=== PATIENT | male | born 1970 | race Caucasian/White ===

== ENCOUNTER 2019-05-17 06:44 | Emergency (ER) | payer BC, SELFPAY ==
--- NOTE | 2019-05-17 06:55 | DI.RAD.S_ITS ---
PROCEDURE: XR CHEST 2V INDICATIONS: SOB TECHNIQUE: 2 views of the chest were acquired. COMPARISON: None. FINDINGS: Surgical changes and devices: None. Lungs and pleura: Minimal retrocardiac hazy opacity and bibasilar hazy opacity most compatible with atelectasis. No consolidation. No pleural effusions or pneumothorax. Mediastinum: Mediastinal contours are normal. Heart size is normal. Bones and chest wall: No suspicious bony abnormalities. Soft tissues appear unremarkable. IMPRESSION: No acute cardiopulmonary abnormality demonstrated. Dictated by: Manuel Ryder M.D. on 05/17/2019 at 7:46 Approved by: Manuel Ryder M.D. on 05/17/2019 at 7:47
--- NOTE | 2019-05-17 06:58 | ED.SOB ---
HPI - SOB/Dyspnea <Jp Sanchez DO - Last Filed: 05/17/19 23:21> General Chief Complaint: Shortness of Breath/Dyspnea Stated Complaint: difficulty breathing Time Seen by Provider: 05/17/19 06:48 Source: patient Mode of arrival: Ambulatory Limitations: no limitations History of Present Illness HPI Narrative: 48-year-old male nonsmoker with benign medical history presents with a chief complaint of gradually worsening shortness of breath nonproductive cough and fatigue for the past 3 or 4 days. He now feels dizzy, weak and lightheaded. He has had a very poor appetite but denies any nausea or vomiting. He feels like he has had a fever and complains of chills but has not measured it. He denies any abdominal pain diarrhea or constipation. He denies any dysuria, frequency or urgency. His symptoms started on knee does had a runny nose and a bit of a scratchy throat but things have worsened as stated over the past few days. He denies any sick contacts. MD Complaint: shortness of breath and cough Onset (ago): day(s) Severity: moderate Consistency/Duration: constant and progressively worsening Relieving factors: nothing Exacerbating factors: deep breaths Associated symptoms: fever, cough, nausea/vomiting and lightheadedness Treatment prior to arrival: none Related Data Home oxygen amount: none Allergies Allergy/AdvReac Type Severity Reaction Status Date / Time No Known Drug Allergies Allergy Verified 05/17/19 07:23 Review of Systems <Jp Sanchez DO - Last Filed: 05/17/19 23:21> Constitutional Constitutional: Denies chills, Denies fatigue, Denies fever(s), Denies frequent falls, Denies lethargy and Reports weakness Eyes Eyes: Denies change in vision, Denies eye discharge, Denies irritation and Denies loss of vision ENT Ears, Nose, Mouth, and Throat: Denies change in voice, Denies dizziness, Denies neck pain, Reports sore throat and Denies throat swelling Cardiovascular Cardiovascular: Denies chest pain, Denies irregular heart rhythm, Denies lightheadedness, Denies palpitations, Reports dyspnea, Denies dyspnea on exertion and Denies orthopnea Respiratory Respiratory: Reports cough, Reports dyspnea, Denies dyspnea on exertion and Reports wheezing Gastrointestinal Gastrointestinal: Denies abdominal pain, Denies change in bowel habits, Denies diarrhea, Denies nausea and Denies vomiting Genitourinary Genitourinary: Denies hematuria, Denies flank pain, Denies urinary incontinence and Denies urinary urgency Musculoskeletal Musculoskeletal: Denies back pain, Denies muscle weakness, Denies neck pain, Denies numbness and Denies tingling Integumentary/Breasts Skin/Breast: Denies pruritus, Denies erythema, Denies rash and Denies wounds Neurologic Neurologic: Denies behavioral changes, Denies confusion, Denies dizziness, Denies frequent falls, Denies loss of vision, Denies numbness, Denies tingling and Reports weakness Psychiatric Psychiatric: Denies anxiety, Denies behavioral changes, Denies confusion, Denies depression, Denies homicidal ideation and Denies suicidal ideation Endocrine Endocrine: Denies fatigue, Denies flushing and Denies palpitations Hematologic/Lymphatic Hematologic/Lymphatic: Denies easy bruising Allergic/Immunologic Allergic/Immunologic: Denies urticaria, Denies throat swelling and Reports wheezing PFSH <Jp Sanchez DO - Last Filed: 05/17/19 23:21> Social History Smoking Status: Current some day smoker Exam <Jp Sanchez DO - Last Filed: 05/17/19 23:21> Narrative Exam Narrative: GENERAL: [48] year old patient appears stated age. Well-nourished, well-developed patient, in mild distress. HEAD: Atraumatic. Normocephalic. EYES: Pupils equal round and reactive. Extraocular motions intact. No scleral icterus. No injection or drainage. ENT: Dry mucous membranes, clear postnasal drip with some pharyngeal erythema Nose without bleeding, purulent drainage. Throat without erythema, tonsillar hypertrophy or exudate. Airway patent. NECK: Trachea midline. Non tender CARDIOVASCULAR: Regular rate and rhythm without murmurs, gallops, or rubs. RESPIRATORY: Mild end expiratory wheeze GASTROINTESTINAL: Abdomen soft, non-tender, nondistended. EXTREMITIES: No edema or joint tenderness. BACK: Nontender without deformity or crepitance. No flank tenderness. NEURO: AOx3. SKIN: No rash or erythema of visible areas Initial Vital Signs Initial Vital Signs: Vital Signs Temperature 98.0 F 05/17/19 07:04 Pulse Rate 62 05/17/19 07:04 Respiratory Rate 18 05/17/19 07:04 Blood Pressure 185/106 H 05/17/19 07:04 Pulse Oximetry 100 05/17/19 07:04 <Altagracia Hines, - Last Filed: 05/17/19 10:32> Initial Vital Signs Initial Vital Signs: Vital Signs Temperature 98.0 F 05/17/19 07:04 Pulse Rate 62 05/17/19 07:04 Respiratory Rate 18 05/17/19 07:04 Blood Pressure 185/106 H 05/17/19 07:04 Pulse Oximetry 100 05/17/19 07:04 Course <Jp Sanchez, DO - Last Filed: 05/17/19 23:21> Course Course Narrative: signed out to Dr. Hines for final disposition Orders Ordered: Discontinued Medications Albuterol/Ipratropium (Duoneb) 3 ml INH NOW ONE Stop: 05/17/19 06:56 Last Admin: 05/17/19 07:15 Dose: 3 ml Documented by: ED Sodium Chloride (Normal Saline 0.9%) 1,000 mls @ 1,000 mls/hr IV BOLUS ONE Stop: 05/17/19 07:54 Last Infusion: 05/17/19 08:38 Dose: 0 mls/hr Documented by: Admin: 05/17/19 07:23 Dose: 1,000 mls/hr Documented by: ERLINDA Vital Signs Vital signs: Vital Signs - 8 hr 05/17/19 07:04 05/17/19 07:15 05/17/19 08:00 Temperature 98.0 F Pulse Rate 62 66 71 Pulse Rate [Orthostatic Lying] Pulse Rate [Orthostatic Sitting] Pulse Rate [Orthostatic Standing] Respiratory Rate 18 16 Blood Pressure 185/106 H Blood Pressure [Left Arm] 169/84 H Blood Pressure [Orthostatic Lying] Blood Pressure [Orthostatic Sitting] Blood Pressure [Orthostatic Standing] Pulse Oximetry 100 100 100 05/17/19 08:01 05/17/19 08:52 Temperature Pulse Rate 61 Pulse Rate [Orthostatic Lying] 65 Pulse Rate [Orthostatic Sitting] 65 Pulse Rate [Orthostatic Standing] 61 Respiratory Rate 14 Blood Pressure Blood Pressure [Left Arm] 163/85 H Blood Pressure [Orthostatic Lying] 169/84 H Blood Pressure [Orthostatic Sitting] 168/86 H Blood Pressure [Orthostatic Standing] 158/86 H Pulse Oximetry 100 <Altagracia Hines DO - Last Filed: 05/17/19 10:32> Orders Ordered: Discontinued Medications Albuterol/Ipratropium (Duoneb) 3 ml INH NOW ONE Stop: 05/17/19 06:56 Last Admin: 05/17/19 07:15 Dose: 3 ml Documented by: ED Sodium Chloride (Normal Saline 0.9%) 1,000 mls @ 1,000 mls/hr IV BOLUS ONE Stop: 05/17/19 07:54 Last Infusion: 05/17/19 08:38 Dose: 0 mls/hr Documented by: Admin: 05/17/19 07:23 Dose: 1,000 mls/hr Documented by: [email or web address] Vital Signs Vital signs: Vital Signs - 8 hr 05/17/19 07:04 05/17/19 07:15 05/17/19 08:00 Temperature 98.0 F Pulse Rate 62 66 71 Pulse Rate [Orthostatic Lying] Pulse Rate [Orthostatic Sitting] Pulse Rate [Orthostatic Standing] Respiratory Rate 18 16 Blood Pressure 185/106 H Blood Pressure [Left Arm] 169/84 H Blood Pressure [Orthostatic Lying] Blood Pressure [Orthostatic Sitting] Blood Pressure [Orthostatic Standing] Pulse Oximetry 100 100 100 05/17/19 08:01 05/17/19 08:52 Temperature Pulse Rate 61 Pulse Rate [Orthostatic Lying] 65 Pulse Rate [Orthostatic Sitting] 65 Pulse Rate [Orthostatic Standing] 61 Respiratory Rate 14 Blood Pressure Blood Pressure [Left Arm] 163/85 H Blood Pressure [Orthostatic Lying] 169/84 H Blood Pressure [Orthostatic Sitting] 168/86 H Blood Pressure [Orthostatic Standing] 158/86 H Pulse Oximetry 100 MDM - SOB/Dyspnea <Jp Sanchez DO - Last Filed: 05/17/19 23:21> Lab Data Result diagrams: 05/17/19 07:10 05/17/19 07:10 Labs: Lab Results 05/17/19 05/17/19 05/17/19 Range/Units 07:10 07:10 07:10 WBC 7.1 (4.5-11.0) X10^3/uL RBC 4.55 (4.5-5.9) X10^6/uL Hgb 14.4 (13.5-17.5) g/dL Hct 41.7 (41-53) % MCV 91.6 (80-100) fL MCH 31.7 (26-34) PG MCHC 34.6 (30-36) % RDW 13.3 (11.6-14.8) % Plt Count 245 (150-400) X10^3/uL Neut % (Auto) 76.3 H (50-75) % Lymph % (Auto) 12.5 L (25-40) % [place] % (Auto) 7.6 (3-14) % Eos % (Auto) 2.7 (2-4) % Baso % (Auto) 0.9 (0-2) % Neut # (Auto) 5400 (2743-8812) /uL Lymph # (Auto) 900 L (9864-5396) /uL [place] # (Auto) 500 (0-900) /uL Eos # (Auto) 200 (0-450) /uL Baso # (Auto) 100 (0-100) /uL Sodium 139 (137-145) mmol/L Potassium 4.9 (3.4-5.1) mmol/L Chloride 99 (98-107) mmol/L Carbon Dioxide 29 (22-32) mmol/L BUN 12 (9-20) mg/dL Creatinine 0.80 (0.66-1.25) mg/dL Estimated GFR > 60.0 (>60) mL/min BUN/Creatinine Ratio 15.0 (6-22) Glucose 118 H (70-100) mg/dL Lactate (0.7-2.1) mmol/L Calcium 9.8 (8.4-10.2) mg/dL Magnesium 1.9 (1.6-2.3) mg/dL Total Bilirubin 0.6 (0.2-1.3) mg/dL AST 45 (17-59) IU/L ALT 22 (21-72) IU/L Alkaline Phosphatase 70 (38-126) U/L Total Creatine Kinase 130 (55-170) U/L CK-MB (CK-2) 1.56 (<2.37) ng/mL CK-MB (CK-2) Rel Index 1.2 L (1.5-5.0) % Troponin I < 0.012 (0.01-0.034) ng/mL Total Protein 8.4 H (6.3-8.2) g/dL Albumin 4.8 (3.5-5.0) g/dL Globulin 3.6 (1.7-4.1) g/dL Albumin/Globulin Ratio 1.3 (1.0-2.8) Procalcitonin < 0.05 (<0.5) ng/mL Urine RBC (0-5/HPF) Urine WBC (0-5/HPF) Urine Bacteria (None) Ur Culture Indicated? Micro UA Comment Influenza A & B (PCR) (Negative) 05/17/19 05/17/19 05/17/19 Range/Units 08:09 08:18 08:30 WBC (4.5-11.0) X10^3/uL RBC (4.5-5.9) X10^6/uL Hgb (13.5-17.5) g/dL Hct (41-53) % MCV (80-100) fL MCH (26-34) PG MCHC (30-36) % RDW (11.6-14.8) % Plt Count (150-400) X10^3/uL Neut % (Auto) (50-75) % Lymph % (Auto) (25-40) % [place] % (Auto) (3-14) % Eos % (Auto) (2-4) % Baso % (Auto) (0-2) % Neut # (Auto) (9830-4614) /uL Lymph # (Auto) (1870-5584) /uL [place] # (Auto) (0-900) /uL Eos # (Auto) (0-450) /uL Baso # (Auto) (0-100) /uL Sodium (137-145) mmol/L Potassium (3.4-5.1) mmol/L Chloride (98-107) mmol/L Carbon Dioxide (22-32) mmol/L BUN (9-20) mg/dL Creatinine (0.66-1.25) mg/dL Estimated GFR (>60) mL/min BUN/Creatinine Ratio (6-22) Glucose (70-100) mg/dL Lactate 2.1 (0.7-2.1) mmol/L Calcium (8.4-10.2) mg/dL Magnesium (1.6-2.3) mg/dL Total Bilirubin (0.2-1.3) mg/dL AST (17-59) IU/L ALT (21-72) IU/L Alkaline Phosphatase (38-126) U/L Total Creatine Kinase (55-170) U/L CK-MB (CK-2) (<2.37) ng/mL CK-MB (CK-2) Rel Index (1.5-5.0) % Troponin I (0.01-0.034) ng/mL Total Protein (6.3-8.2) g/dL Albumin (3.5-5.0) g/dL Globulin (1.7-4.1) g/dL Albumin/Globulin Ratio (1.0-2.8) Procalcitonin (<0.5) ng/mL Urine RBC None seen (0-5/HPF) Urine WBC None seen (0-5/HPF) Urine Bacteria None seen (None) Ur Culture Indicated? Cult not indicated Micro UA Comment Microscopic normal Influenza A & B (PCR) Negative (Negative) Urine Dip Bedside Urine Glucose Negative Bedside Urine Bilirubin - Negative Bedside Urine Ketone - Negative Urine Specific Andreas 1.010 Bedside Urine Occult Blood - Negative Bedside Urine pH 8.5 Bedside Urine Protein +/- 15 Bedside Urine Urobilinogen - Negative Bedside Urine Nitrite - Negative Bedside Urine Leukocytes - Negative Esterase <Altagracia Hines, DO - Last Filed: 05/17/19 10:32> Lab Data Attestation: I reviewed the patient's lab results. Labs: Lab Results 05/17/19 05/17/19 05/17/19 Range/Units 07:10 07:10 07:10 WBC 7.1 (4.5-11.0) X10^3/uL RBC 4.55 (4.5-5.9) X10^6/uL Hgb 14.4 (13.5-17.5) g/dL Hct 41.7 (41-53) % MCV 91.6 (80-100) fL MCH 31.7 (26-34) PG MCHC 34.6 (30-36) % RDW 13.3 (11.6-14.8) % Plt Count 245 (150-400) X10^3/uL Neut % (Auto) 76.3 H (50-75) % Lymph % (Auto) 12.5 L (25-40) % [place] % (Auto) 7.6 (3-14) % Eos % (Auto) 2.7 (2-4) % Baso % (Auto) 0.9 (0-2) % Neut # (Auto) 5400 (1185-6171) /uL Lymph # (Auto) 900 L (9676-8266) /uL [place] # (Auto) 500 (0-900) /uL Eos # (Auto) 200 (0-450) /uL Baso # (Auto) 100 (0-100) /uL Sodium 139 (137-145) mmol/L Potassium 4.9 (3.4-5.1) mmol/L Chloride 99 (98-107) mmol/L Carbon Dioxide 29 (22-32) mmol/L BUN 12 (9-20) mg/dL Creatinine 0.80 (0.66-1.25) mg/dL Estimated GFR > 60.0 (>60) mL/min BUN/Creatinine Ratio 15.0 (6-22) Glucose 118 H (70-100) mg/dL Lactate (0.7-2.1) mmol/L Calcium 9.8 (8.4-10.2) mg/dL Magnesium 1.9 (1.6-2.3) mg/dL Total Bilirubin 0.6 (0.2-1.3) mg/dL AST 45 (17-59) IU/L ALT 22 (21-72) IU/L Alkaline Phosphatase 70 (38-126) U/L Total Creatine Kinase 130 (55-170) U/L CK-MB (CK-2) 1.56 (<2.37) ng/mL CK-MB (CK-2) Rel Index 1.2 L (1.5-5.0) % Troponin I < 0.012 (0.01-0.034) ng/mL Total Protein 8.4 H (6.3-8.2) g/dL Albumin 4.8 (3.5-5.0) g/dL Globulin 3.6 (1.7-4.1) g/dL Albumin/Globulin Ratio 1.3 (1.0-2.8) Procalcitonin < 0.05 (<0.5) ng/mL Urine RBC (0-5/HPF) Urine WBC (0-5/HPF) Urine Bacteria (None) Ur Culture Indicated? Micro UA Comment Influenza A & B (PCR) (Negative) 05/17/19 05/17/19 05/17/19 Range/Units 08:09 08:18 08:30 WBC (4.5-11.0) X10^3/uL RBC (4.5-5.9) X10^6/uL Hgb (13.5-17.5) g/dL Hct (41-53) % MCV (80-100) fL MCH (26-34) PG MCHC (30-36) % RDW (11.6-14.8) % Plt Count (150-400) X10^3/uL Neut % (Auto) (50-75) % Lymph % (Auto) (25-40) % [place] % (Auto) (3-14) % Eos % (Auto) (2-4) % Baso % (Auto) (0-2) % Neut # (Auto) (7591-6388) /uL Lymph # (Auto) (5308-7373) /uL [place] # (Auto) (0-900) /uL Eos # (Auto) (0-450) /uL Baso # (Auto) (0-100) /uL Sodium (137-145) mmol/L Potassium (3.4-5.1) mmol/L Chloride (98-107) mmol/L Carbon Dioxide (22-32) mmol/L BUN (9-20) mg/dL Creatinine (0.66-1.25) mg/dL Estimated GFR (>60) mL/min BUN/Creatinine Ratio (6-22) Glucose (70-100) mg/dL Lactate 2.1 (0.7-2.1) mmol/L Calcium (8.4-10.2) mg/dL Magnesium (1.6-2.3) mg/dL Total Bilirubin (0.2-1.3) mg/dL AST (17-59) IU/L ALT (21-72) IU/L Alkaline Phosphatase (38-126) U/L Total Creatine Kinase (55-170) U/L CK-MB (CK-2) (<2.37) ng/mL CK-MB (CK-2) Rel Index (1.5-5.0) % Troponin I (0.01-0.034) ng/mL Total Protein (6.3-8.2) g/dL Albumin (3.5-5.0) g/dL Globulin (1.7-4.1) g/dL Albumin/Globulin Ratio (1.0-2.8) Procalcitonin (<0.5) ng/mL Urine RBC None seen (0-5/HPF) Urine WBC None seen (0-5/HPF) Urine Bacteria None seen (None) Ur Culture Indicated? Cult not indicated Micro UA Comment Microscopic normal Influenza A & B (PCR) Negative (Negative) Urine Dip Bedside Urine Glucose Negative Bedside Urine Bilirubin - Negative Bedside Urine Ketone - Negative Urine Specific Andreas 1.010 Bedside Urine Occult Blood - Negative Bedside Urine pH 8.5 Bedside Urine Protein +/- 15 Bedside Urine Urobilinogen - Negative Bedside Urine Nitrite - Negative Bedside Urine Leukocytes - Negative Esterase Imaging Data Chest x-ray: Radiologist's impression: PROCEDURE: XR CHEST 2V INDICATIONS: SOB TECHNIQUE: 2 views of the chest were acquired. COMPARISON: None. FINDINGS: Surgical changes and devices: None. Lungs and pleura: Minimal retrocardiac hazy opacity and bibasilar hazy opacity most compatible with atelectasis. No consolidation. No pleural effusions or pneumothorax. Mediastinum: Mediastinal contours are normal. Heart size is normal. Bones and chest wall: No suspicious bony abnormalities. Soft tissues appear unremarkable. IMPRESSION: No acute cardiopulmonary abnormality demonstrated. Dictated by: Manuel Ryder M.D. on 05/17/2019 at 7:46 ECG Data Attestation: I personally reviewed and interpreted this ECG as follows: Prior ECG tracings: not available for review Interpretation: Normal sinus rhythm rate [address] elevations no T-wave inversions no priors to compare no sign of ischemia MDM Narrative Medical decision making narrative: Patient signed out to me by Dr. Sanchez. I have seen and evaluated patient myself. He has a upper respiratory like symptoms ongoing for the last 3-4 days progressively getting worse. He does have an albuterol treatment which he says did not really help. X-ray does not show any pneumonia he has no white count he is afebrile does not appear septic or toxic. EKG and troponin are both negative. Likely upper respiratory viral infection. Discharge Plan Departure Patient Disposition: Home Clinical Impression: Viral upper respiratory infection Discharge Date/Time: 05/17/19 09:31 Instructions: DI for Viral Upper Respiratory Infection -- Adult Activity Restrictions/Additional Instructions: *You have been diagnosed with upper respiratory infection *What to do: At this time no indication for antibiotics. No pneumonia. Blood work and EKG are reassuring. Please have your blood pressure checked with your PCP it is noted to be elevated here in the emergency department. *Continue to take medications as directed *Follow up with your primary care provider in 2-3 days *Return to ER if you should have increasing shortness of breath, chest pain, heart palpitations or any new, worsening or concerning symptoms Referrals: [facility] [Outside]
[2019-05-17 07:04] VITALS: BP 185/106; PULSE 62; RESP 18; TEMP 36.7; O2SAT 100; BMI 23.7
[2019-05-17 07:15] VITALS: PULSE 66; O2SAT 100
[2019-05-17] MEDS: ALBUTEROL/IPRATROPIUM 3 ML AMPUL INH (07:15)
[2019-05-17 07:18] LABS: Add Manual Diff / Slide Review NO; Basophils Absolute Auto 100 /uL (0-100); Basophils Percent Auto 0.9 % (0-2); Eosinophils Absolute Auto 200 /uL (0-450); Eosinophils Percent Auto 2.7 % (2-4); Hematocrit 41.7 % (41-53); Hemoglobin 14.4 g/dL (13.5-17.5); Lymphocytes Absolute Auto 900 /uL (1100-4500); Lymphocytes Percent Auto 12.5 % (25-40); Mean Corpuscular HGB Conc 34.6 % (30-36); Mean Corpuscular Hemoglobin 31.7 PG (26-34); Mean Corpuscular Volume 91.6 fL (80-100); Monocytes Absolute Auto 500 /uL (0-900); Monocytes Percent Auto 7.6 % (3-14); Neutrophils Absolute Auto 5400 /uL (1500-7000); Neutrophils Percent Auto 76.3 % (50-75); Platelet Count 245 X10^3/uL (150-400); Red Blood Cell Count 4.55 X10^6/uL (4.5-5.9); Red Cell Distribution Width 13.3 % (11.6-14.8); White Blood Cell Count 7.1 X10^3/uL (4.5-11.0)
[2019-05-17] MEDS: SODIUM CHLORIDE 0.9% 1,000 ML 1000 ML IV (07:23)
[2019-05-17 07:31] LABS: Alanine Aminotransferase 22 IU/L (21-72); Albumin 4.8 g/dL (3.5-5.0); Albumin Globulin Ratio 1.3 (1.0-2.8); Alkaline Phosphatase 70 U/L (38-126); Aspartate Aminotransferase 45 IU/L (17-59); Bilirubin Total 0.6 mg/dL (0.2-1.3); Blood Urea Nitrogen 12 mg/dL (9-20); Calcium 9.8 mg/dL (8.4-10.2); Carbon Dioxide 29 mmol/L (22-32); Chloride 99 mmol/L (98-107); Creatine Kinase 130 U/L (55-170); Estimated Glomerular Filt Rate > 60.0 mL/min (>60); Globulin 3.6 g/dL (1.7-4.1); Glucose 118 mg/dL (70-100); HEMOLYSIS < 15 (0-50); Magnesium 1.9 mg/dL (1.6-2.3); Potassium 4.9 mmol/L (3.4-5.1); Sodium 139 mmol/L (137-145); Total Protein 8.4 g/dL (6.3-8.2)
[2019-05-17 07:43] LABS: Troponin I < 0.012 ng/mL (0.01-0.034)
[2019-05-17 07:46] LABS: CKMB % Relative Index 1.2 % (1.5-5.0); Creatine Kinase MB 1.56 ng/mL (<2.37)
[2019-05-17 07:49] LABS: Procalcitonin < 0.05 ng/mL (<0.5)
[2019-05-17 08:00] VITALS: BP 169/84; PULSE 71; RESP 16; O2SAT 100
[2019-05-17 08:01] VITALS: BP 158/86; BP 168/86; BP 169/84; PULSE 61; PULSE 65
--- NOTE | 2019-05-17 08:06 | PC.NURSE ---
pt reports SOB and cold like symptoms, denies fever. AAOx3. intermittent [employer] cough. diminished lungs sounds throughout. orthostatics negative. afebrile. CXR obtained. IVF infusing. Lab called for additional blood draw.
[2019-05-17 08:33] LABS: Influenza A and B by PCR Rapid Negative (Negative)
[2019-05-17 08:42] LABS: Lactate (Lactic Acid) 2.1 mmol/L (0.7-2.1)
[2019-05-17 08:52] VITALS: BP 163/85; PULSE 61; RESP 14; O2SAT 100
[2019-05-17 08:52] LABS: Bacteria Urine None Seen; RBC Urine None Seen (0-5/HPF); WBC Urine None Seen (0-5/HPF)
[2019-05-17 08:57] LABS: Culture Indicated Urine Cult Not Indicated; Urine Comments Microscopic Normal
== END 2019-05-17 09:31 | disposition home or self-care (01) ==
PROVIDERS: Emergency Medicine; Emergency Provider Emergency Medicine
DX: J06.9 Acute upper respiratory infection, unspecified (principal)
CPT/HCPCS: 36415; 71046; 80053; 81003; 81015; 82550; 82553; 83605; 83735; 84145; 84484; 85025; 87040; 87400; 87502; 93005; 94640; 96360; 99284; 99285

== ENCOUNTER 2019-05-25 10:24 | Emergency (ER) | payer BC, SELFPAY ==
[2019-05-25 10:37] VITALS: BP 184/98; PULSE 70; RESP 14; TEMP 36.8; O2SAT 98
--- NOTE | 2019-05-25 11:11 | DI.RAD.S_ITS ---
PROCEDURE: XR CHEST 1V INDICATIONS: chest pain TECHNIQUE: One view of the chest was acquired. COMPARISON: [facility], CR, XR CHEST 2 VIEWS, 07/14/2018, 9:05. [facility], CR, XR CHEST 2V, 05/17/2019, 7:24. FINDINGS: Surgical changes and devices: None. Lungs and pleura: Lungs are clear. No pleural effusions or pneumothorax. Mediastinum: Mediastinal contours appear normal. Heart size is normal. Bones and chest wall: No suspicious bony lesions. Overlying soft tissues appear unremarkable. IMPRESSION: No acute cardiopulmonary disease. Dictated by: Leonard Barron M.D. on 05/25/2019 at 11:50 Approved by: Leonard Barron M.D. on 05/25/2019 at 11:50
--- NOTE | 2019-05-25 11:15 | ED.CHESTPAIN ---
HPI - Chest Pain General Chief Complaint: Chest Pain Stated Complaint: chest pain in center of chest/high b/p/sob x9days Time Seen by Provider: 05/25/19 10:39 Source: patient Mode of arrival: Ambulatory Limitations: no limitations History of Present Illness HPI narrative: 48-year-old male nonsmoker with history of hypertension and anxiety presents with a chief complaint of about 1 week's worth of anterior chest pain which is worse with a deep breath. He was seen and evaluated about a week ago and had extensive workup including labs and imaging was thought to have a viral upper respiratory infection. He continued to sneeze and cough and generally feeling unwell over the course of the week and tried going back to work today but was sent here when he stated he could not work. He has had no productive cough denies fever chills and has had no nausea or vomiting. He denies any significant provocation or palliation other than that which was stated above. He denies any worsening of symptoms with states he does not necessarily feel much better MD complaint: chest pain Onset (ago): day(s) Duration: intermittent Pain location: substernal Severity: mild Quality: sharp Pain radiation: none Relieving factors: rest Exacerbating factors: inspiration, palpation and movement Associated symptoms: dyspnea Treatments prior to arrival chest pain: none Related Data Home Medications Medication Instructions Recorded Confirmed finasteride 1.25 mg PO DAILY 05/25/19 05/25/19 gabapentin 300 mg PO TID 05/25/19 05/25/19 Previous Rx's Medication Instructions Recorded lisinopril 10 mg PO DAILY #30 tab 05/25/19 Allergies Allergy/AdvReac Type Severity Reaction Status Date / Time No Known Drug Allergies Allergy Verified 05/17/19 07:23 Review of Systems Constitutional Constitutional: Denies chills, Denies fatigue, Denies fever(s), Denies frequent falls, Denies lethargy and Denies weakness Eyes Eyes: Denies change in vision, Denies eye discharge, Denies irritation and Denies loss of vision ENT Ears, Nose, Mouth, and Throat: Denies change in voice, Denies dizziness, Denies neck pain, Denies sore throat and Denies throat swelling Cardiovascular Cardiovascular: Reports chest pain, Denies irregular heart rhythm, Denies lightheadedness, Denies palpitations, Reports dyspnea, Denies dyspnea on exertion and Denies orthopnea Respiratory Respiratory: Reports cough, Reports dyspnea, Denies dyspnea on exertion and Denies wheezing Gastrointestinal Gastrointestinal: Denies abdominal pain, Denies change in bowel habits, Denies diarrhea, Denies nausea and Denies vomiting Genitourinary Genitourinary: Denies hematuria, Denies flank pain, Denies urinary incontinence and Denies urinary urgency Musculoskeletal Musculoskeletal: Denies back pain, Denies muscle weakness, Denies neck pain, Denies numbness and Denies tingling Integumentary/Breasts Skin/Breast: Denies pruritus, Denies erythema, Denies rash and Denies wounds Neurologic Neurologic: Denies behavioral changes, Denies confusion, Denies dizziness, Denies frequent falls, Denies loss of vision, Denies numbness, Denies tingling and Denies weakness Psychiatric Psychiatric: Denies anxiety, Denies behavioral changes, Denies confusion, Denies depression, Denies homicidal ideation and Denies suicidal ideation Endocrine Endocrine: Denies fatigue, Denies flushing and Denies palpitations Hematologic/Lymphatic Hematologic/Lymphatic: Denies easy bruising Allergic/Immunologic Allergic/Immunologic: Denies urticaria, Denies throat swelling and Denies wheezing [facility] Social History Smoking Status: Current some day smoker Exam Narrative Exam Narrative: GENERAL: [48] year old patient appears stated age. Well-nourished, well-developed patient, in mild distress. HEAD: Atraumatic. Normocephalic. EYES: Pupils equal round and reactive. Extraocular motions intact. No scleral icterus. No injection or drainage. ENT: Nose without bleeding, purulent drainage. Throat without erythema, tonsillar hypertrophy or exudate. Airway patent. NECK: Trachea midline. Non tender CARDIOVASCULAR: Regular rate and rhythm without murmurs, gallops, or rubs. RESPIRATORY: Clear to auscultation. Breath sounds equal bilaterally. No wheezes, rales, or rhonchi. GASTROINTESTINAL: Abdomen soft, non-tender, nondistended. EXTREMITIES: No edema or joint tenderness. BACK: Nontender without deformity or crepitance. No flank tenderness. NEURO: AOx3. SKIN: No rash or erythema of visible areas Initial Vital Signs Initial Vital Signs: Vital Signs Temperature 98.2 F 05/25/19 10:37 Pulse Rate 70 05/25/19 10:37 Respiratory Rate 14 05/25/19 10:37 Blood Pressure 184/98 H 05/25/19 10:37 Pulse Oximetry 98 05/25/19 10:37 Course Orders Ordered: ED Orders 05/25/19 10:40 Complete Blood Count AUTO DIFF Stat Comprehensive Metabolic Panel Stat D Dimer Stat Lipase Stat Troponin & CK Cardiac Panel Stat 05/25/19 11:11 XR chest 1V Stat Discontinued Medications Aspirin (Aspirin Chew) 324 mg PO NOW ONE Stop: 05/25/19 11:12 Last Admin: 05/25/19 11:18 Dose: 324 mg Documented by: KRUPA Sodium Chloride (Normal Saline 0.9%) 1,000 mls @ 150 mls/hr IV CONT NAILA Last Infusion: 05/25/19 12:33 Dose: 0 mls/hr Documented by: Admin: 05/25/19 11:19 Dose: 150 mls/hr Documented by: KRUPA Vital Signs Vital signs: Vital Signs - 8 hr 05/25/19 11:34 Pulse Rate 76 Respiratory Rate 29 H Blood Pressure [Left Arm] 165/112 H Pulse Oximetry 98 MDM - Chest Pain Lab Data Result diagrams: 05/25/19 10:40 05/25/19 10:40 Labs: Lab Results 05/25/19 05/25/19 05/25/19 Range/Units 10:40 10:40 10:40 WBC 5.8 (4.5-11.0) X10^3/uL RBC 4.72 (4.5-5.9) X10^6/uL Hgb 14.7 (13.5-17.5) g/dL Hct 43.1 (41-53) % MCV 91.2 (80-100) fL MCH 31.2 (26-34) PG MCHC 34.2 (30-36) % RDW 12.6 (11.6-14.8) % Plt Count 232 (150-400) X10^3/uL Neut % (Auto) 71.7 (50-75) % Lymph % (Auto) 18.8 L (25-40) % [place] % (Auto) 7.0 (3-14) % Eos % (Auto) 1.2 L (2-4) % Baso % (Auto) 1.3 (0-2) % Neut # (Auto) 4200 (0350-7642) /uL Lymph # (Auto) 1100 (6026-4295) /uL [place] # (Auto) 400 (0-900) /uL Eos # (Auto) 100 (0-450) /uL Baso # (Auto) 100 (0-100) /uL D-Dimer < 200 (<230) ng/mL Sodium 139 (137-145) mmol/L Potassium 4.0 (3.4-5.1) mmol/L Chloride 97 L (98-107) mmol/L Carbon Dioxide 28 (22-32) mmol/L BUN 13 (9-20) mg/dL Creatinine 0.70 (0.66-1.25) mg/dL Estimated GFR > 60.0 (>60) mL/min BUN/Creatinine Ratio 18.6 (6-22) Glucose 111 H (70-100) mg/dL Calcium 9.6 (8.4-10.2) mg/dL Total Bilirubin 0.8 (0.2-1.3) mg/dL AST 102 H (17-59) IU/L ALT 59 (21-72) IU/L Alkaline Phosphatase 85 (38-126) U/L Total Creatine Kinase 159 (55-170) U/L CK-MB (CK-2) 1.32 (<2.37) ng/mL CK-MB (CK-2) Rel Index 0.8 L (1.5-5.0) % Troponin I < 0.012 (0.01-0.034) ng/mL Total Protein 8.6 H (6.3-8.2) g/dL Albumin 4.8 (3.5-5.0) g/dL Globulin 3.8 (1.7-4.1) g/dL Albumin/Globulin Ratio 1.3 (1.0-2.8) Lipase 193 (23-300) U/L Imaging Data Chest x-ray: Radiologist's impression: [address] [address] XRay Report Signed Patient: Roly Godwin MMR#: [id number] : 1970Acct:[id number] Age/Sex: 48 / MDate of Service: 05/25/19 Loc: ED Accession Number: [id number] Procedure: XR chest 1V Ordering Provider: Jp Sanchez D.O. PROCEDURE: XR CHEST 1V INDICATIONS: chest pain TECHNIQUE: One view of the chest was acquired. COMPARISON: [facility], CR, XR CHEST 2 VIEWS, 07/14/2018, 9:05. [facility], CR, XR CHEST 2V, 05/17/2019, 7:24. FINDINGS: Surgical changes and devices: None. Lungs and pleura: Lungs are clear. No pleural effusions or pneumothorax. Mediastinum: Mediastinal contours appear normal. Heart size is normal. Bones and chest wall: No suspicious bony lesions. Overlying soft tissues appear unremarkable. IMPRESSION: No acute cardiopulmonary disease. Dictated by: Leonard Barron M.D. on 05/25/2019 at 11:50 Approved by: Leonard Barron M.D. on 05/25/2019 at 11:50 MDM Narrative Medical decision making narrative: Multiple etiologies for patient's symptoms considered including: [Pleuritic-type chest pain versus costochondritis versus pneumonia versus CT versus pulmonary embolism versus other Multiple causes of chest pain considered including CT, PE, pneumothorax, pneumonia, aortic dissection, and pleurisy. Patient reports no radiation, no diaphoresis, no provocation with exertion, and no vomiting] Patient's symptoms improved or duration of stay with above-stated therapies. Findings and discharge diagnosis discussed with patient/family followed by verbalization of understanding Return precautions discussed with patient/family whom verbalize understanding. Discharge Plan Departure Patient Disposition: Home Clinical Impression: Atypical chest pain, Viral upper respiratory infection, Benign essential HTN Discharge Date/Time: 05/25/19 12:33 Instructions: Essential Hypertension Activity Restrictions/Additional Instructions: *You have been diagnosed with [atypical chest pain, likely from recent upper respiratory infection. Hypertension] *What to do: *Take medications as directed *Follow up with your primary care provider in 2-3 days, call for an appointment. Let them know you were seen in the Emergency Department and that we ask that you be seen in follow up *Return to ER if you should have any new, worsening or concerning symptoms Prescriptions: New lisinopril 10 mg tablet 10 mg PO DAILY Qty: 30 RF: 0 No Action gabapentin 300 mg Capsule 300 mg PO TID RF: 0 finasteride 5 mg Tablet 1.25 mg PO DAILY RF: 0 Referrals: Bridger Franz [Primary Care Provider] - Stand Alone Forms: Work Release Note
[2019-05-25] MEDS: ASPIRIN 81 MG CHEW TAB 324 MG PO (11:18)
[2019-05-25] MEDS: SODIUM CHLORIDE 0.9% 1,000 ML 150 ML IV (11:19)
[2019-05-25 11:27] LABS: Add Manual Diff / Slide Review NO; Basophils Absolute Auto 100 /uL (0-100); Basophils Percent Auto 1.3 % (0-2); Eosinophils Absolute Auto 100 /uL (0-450); Eosinophils Percent Auto 1.2 % (2-4); Hematocrit 43.1 % (41-53); Hemoglobin 14.7 g/dL (13.5-17.5); Lymphocytes Absolute Auto 1100 /uL (1100-4500); Lymphocytes Percent Auto 18.8 % (25-40); Mean Corpuscular HGB Conc 34.2 % (30-36); Mean Corpuscular Hemoglobin 31.2 PG (26-34); Mean Corpuscular Volume 91.2 fL (80-100); Monocytes Absolute Auto 400 /uL (0-900); Neutrophils Absolute Auto 4200 /uL (1500-7000); Neutrophils Percent Auto 71.7 % (50-75); Platelet Count 232 X10^3/uL (150-400); Red Blood Cell Count 4.72 X10^6/uL (4.5-5.9); Red Cell Distribution Width 12.6 % (11.6-14.8); White Blood Cell Count 5.8 X10^3/uL (4.5-11.0)
[2019-05-25 11:32] LABS: D Dimer < 200 ng/mL (<230)
[2019-05-25 11:34] VITALS: BP 165/112; PULSE 76; RESP 29; O2SAT 98
[2019-05-25 11:36] LABS: Alanine Aminotransferase 59 IU/L (21-72); Albumin 4.8 g/dL (3.5-5.0); Albumin Globulin Ratio 1.3 (1.0-2.8); Alkaline Phosphatase 85 U/L (38-126); Aspartate Aminotransferase 102 IU/L (17-59); BUN Creatinine Ratio 18.6 (6-22); Bilirubin Total 0.8 mg/dL (0.2-1.3); Blood Urea Nitrogen 13 mg/dL (9-20); Calcium 9.6 mg/dL (8.4-10.2); Carbon Dioxide 28 mmol/L (22-32); Chloride 97 mmol/L (98-107); Creatine Kinase 159 U/L (55-170); Estimated Glomerular Filt Rate > 60.0 mL/min (>60); Globulin 3.8 g/dL (1.7-4.1); Glucose 111 mg/dL (70-100); HEMOLYSIS < 15 (0-50); Lipase 193 U/L (23-300); Sodium 139 mmol/L (137-145); Total Protein 8.6 g/dL (6.3-8.2)
[2019-05-25 11:47] LABS: Troponin I < 0.012 ng/mL (0.01-0.034)
[2019-05-25 11:51] LABS: CKMB % Relative Index 0.8 % (1.5-5.0); Creatine Kinase MB 1.32 ng/mL (<2.37)
== END 2019-05-25 12:33 | disposition home or self-care (01) ==
PROVIDERS: Emergency Provider Emergency Medicine; PCP Family Medicine Sports Medicine
DX: R07.89 Other chest pain (principal); J06.9 Acute upper respiratory infection, unspecified; I10 Essential (primary) hypertension
CPT/HCPCS: 36415; 71045; 80053; 82550; 82553; 83690; 84484; 85025; 85379; 93005; 93041; 96360; 99283; 99285